=== PATIENT | female | born 1950 | race Two or more races ===

== ENCOUNTER 2019-11-10 08:23 | Day surgery (SDC) | payer BC ==
[2019-11-10] MEDS ORDERED: PROPOFOL 10 MG/ML VIAL IV ONE (08:24)
[2019-11-10] MEDS ORDERED: LIDOCAINE 2% MDV (20MG/ML) 20ML VIAL IV ONE (08:24)
--- NOTE | 2019-11-11 15:20 | Operative Note ---
OPERATION: Screening COLONOSCOPY. PREOPERATIVE DIAGNOSIS: Family history of colon cancer in a child. POSTOPERATIVE DIAGNOSIS: Normal exam. PREPARATION QUALITY: Excellent. ESTIMATED BLOOD LOSS: None. SPECIMENS: None. COMPLICATIONS: None apparent. PROCEDURE: After informed consent was obtained from the patient, she was placed in the left lateral decubitus position in the endoscopy suite, sedated and monitored by the department of anesthesia. Digital rectal exam was unremarkable. A well-lubricated [id number] colonoscope was inserted into the rectum and advanced to the cecum. Abdominal pressure was required for intubating the cecal cap. The cecum, cecal bulb, ileocecal valve, appendiceal orifice, ascending colon, transverse colon, descending colon, sigmoid colon, and rectum were free of inflammatory changes, mass lesions, or polyps. Forward and J-turn views of the rectum and anorectum were unremarkable. The endoscope was straightened, the rectal ampulla deflated, and the endoscope was removed. RECOMMENDATIONS: I would suggest the patient resume her medications and diet. She should undergo repeat exam in 5 years based on her family history of colon cancer. As always, thank you for allowing me to participate in the healthcare of your patients. [id number]
== END 2019-11-10 10:25 | disposition home or self-care (01) ==
LOC: HOP 08:23
PROVIDERS: ATTEND Internal Medicine Gastroenterology
DX: Z12.11 Encounter for screening for malignant neoplasm of colon (principal); Z80.0 Family history of malignant neoplasm of digestive organs; I10 Essential (primary) hypertension; E78.00 Pure hypercholesterolemia, unspecified